=== PATIENT | female | born 1995 | race Caucasian/White ===

== ENCOUNTER 2020-04-13 21:54 | Emergency (ER) | payer OTHER ==
[~2020-04-13] VITALS: Ht 172.7 cm; Wt 52.2 kg
--- NOTE | 2020-04-13 22:00 | Emergency Room Report ---
History of Present Illness General Chief Complaint: To Be Triaged Source: Patient Present Illness HPI 25-year-old female With past medical history of migraine headaches and marijuana abuse presents to the emergency department with left-sided headache that began prior to arrival. Atraumatic. Similar to previous headache she has had in her life. Describes mild "visual fluttering" but no loss of vision, loss of hearing, facial weakness, slurred speech, focal weakness, chest pain, shortness of breath, photophobia, fever, chills, nausea, vomiting, diarrhea. Last menstrual period was 3 weeks ago. Patient has irregular periods 2/2 switching control and May 2019. The patient's symptoms were gradual onset, severity was moderate, duration since 1 day. Quality: Throbbing Past medical history: Migraines Past surgical history: Denies Smoking: Denies Alcohol use: Denies Drug use: ++Daily marijuana use Review of systems: CONST: No fevers or chills, No night sweats PULMONARY: No productive cough, No shortness of breath CARDIAC: No chest pain, No palpitations GI: No vomiting, No diarrhea , No melena_or_BRBPR : No dysuria, No hematuria, No discharge NEURO: No new_focal_weakness_or_numbness, No confusion, No vision changes 14 point Review of Systems is otherwise negative except per HPI Physical Exam: GENERAL: Awake_alert_ nontoxic, no acute distress Spo2 98% on RA -normal EYES: Extraocular muscles are intact. Conjunctivae clear. Lids without swelling. No nystagmus no cycloplegia. No hyphema no hypopion ENT: External nose and ear normal_in_appearance. Oropharynx clear. Head_atraumatic, Moist_oral_mucosa NECK: No JVD. No meningismus. No thyromegaly. Supple. Trachea midline RESP: Normal respiratory effort. Symmetric rise. No stridor. Clear_to_auscultation_No_rales_No_wheezes CARDIAC: Regular rate and regular rhytm. No_significant pedal edema. ABDOMEN: Soft. Nondistended. Nontender_No_rebound_or_guarding. MSK: Normal muscle tone, without rigidity. Extremities without asymmetric deformity or swelling. SKIN: Warm and dry. No visible cyanosis or pallor NEUROLOGIC: Alert, oriented x3. Motor_and_sensation_grossly_intact. No truncal ataxia. Gait_normal Psych: Normal mood and affect, normal judgment and insight - COORDINATION OF CARE Case was discussed with: Patient Any labs and imaging that were ordered were interpreted as part of the medical decision making: Medical Decision Making/Plan: Differential for the patients headache includes primary headache (migraine, tension, cluster), DOUBT subarachnoid hemorrhage, intracranial mass / tumor, meningitis, encephalitis, increased intracranial pressure, mastoiditis, acute sinusitis, dural venous thrombosis, temporal arteritis, acute angle closure glaucoma, among others. Headache not sudden and severe, not worst headache of life, no family hx of SAH, neurologically intact without any persistent vomiting. Not consistent with subarachnoid hemorrhage, cavernous sinus thrombosis, dural venous thrombosis, increased intracranial pressure, or significant tumor at this time. Patient without meningismus, mastoid / sinus tenderness, altered mental status or seizure. Doubt subdural abscess, meningitis, encephalitis, mastoiditis. No significant trauma mechanism, not anticoagulated. No evidence of subdural / epidural hematoma. [place] CT head criteria negative. No temporal tenderness, jaw claudication or vision loss. Eyes are reactive, with normal appearing anterior chambers. No evidence of temporal arteritis or acute angle closure glaucoma. Given the patients presentation, with new type of headache and vomiting, despite normal neurologic exam, advanced imaging of the head with CT was felt to indicated and was obtained after weighing the risks and benefits of radiation to rule out cause of increased intracranial pressure such as tumor or mass which was negative. UA neg. preg neg. CT head negative for tumor / mass / bleed. Remains neuro intact, all sx resolved after tylenol Pertinent results reviewed with the patient. I educated the patient on the current treatment plan including the risks, benefits, and alternatives. I also discussed the extent and limitations of the current evaluation. The patient expr essed understanding and agreement with plan. I recommended PMD follow-up within 1-2 days follow-up with a neurologist. Also advised that the patient return to the Emergency Department as soon as possible if they experience any new, persistent, or worsening symptoms. Allergies: Coded Allergies: No Known Allergies (Unverified , 04/13/20) Physical Exam Sp02 EP Interpretation: reviewed, normal Medical Decision Making Diagnostic Impression: Primary Impression: Headache Additional Impression: Marijuana use Disposition: HOME, SELF-CARE Condition: Stable Scripts Naproxen* (NAPROXEN*) 500 Mg Tablet.dr 500 MG ORAL TWICE A DAY for 10 Days, #20 TAB Prov: Cindi Barkley D.O. 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 You may need referral to neurologist for your chronic migraine headaches. Stop smoking marijuana. Follow-up with your doctor sooner if your condition requires a more timely clinical reevaluation. Return to the emergency department immediately if you feel that your condition is worsening or if you have any new or concerning symptoms. Review your discharge instructions and take any prescriptions given as instructed. [facility] PROVIDES FREE OR LOW-COST HEALTH SERVICES TO PEOPLE WHO CAN SHOW PROOF THAT THEY LIVE IN [facility]. TO FIND MORE CLINICS PARTNERED WITH [facility] TO PROVIDE SERVICE, PLEASE CALL . Cindi Barkley D.O. Apr 13, 2020 22:00
--- NOTE | 2020-04-13 22:15 | NUR ---
ED Nurse Note: Recieved pt walk in from home, here with c/o migraine headache she had earlier at 05/01, and with bilat eye twitching, s/s have resolved to no eye twitching and head pain at 09/29, pt states she wants to know why her eye was twitching, denies fevers, cough, or any other complaints or discomfort, no blurred vision or photophobia or nausea.
[2020-04-13] MEDS ORDERED: Acetaminophen 500mg (ES) tab ORAL ONE (22:30)
[2020-04-13] MEDS ORDERED: NAPROXEN500 M1 ORAL (22:43)
--- NOTE | 2020-04-13 23:14 | Diagnostic Imaging Report ---
EXAM: CT Head Without Intravenous Contrast CLINICAL HISTORY: HEAR TECHNIQUE: Axial computed tomography images of the head/brain without intravenous contrast. CTDI is 53.4 mGy and DLP is 936.3 mGy-cm. One or more of the following dose reduction techniques were used: automated exposure control, adjustment of the mA and/or kV according to patient size, use of iterative reconstruction technique. COMPARISON: No relevant prior studies available. FINDINGS: Brain: No hemorrhage. No edema. Ventricles: No ventriculomegaly. Bones/joints: No acute fracture. Soft tissues: Unremarkable. Sinuses: No acute sinusitis. Mastoid air cells: No mastoid effusion. IMPRESSION: No acute intracranial process.
[2020-04-14] LABS: APPEARANCE,URINE SLIGHTLY CLOUDY; BILIRUBIN, URINE NEGATIVE (NEGATIVE); GLUCOSE, URINE (UA) NEGATIVE (NEGATIVE); KETONES,URINE NEGATIVE (NEGATIVE); LEUKOCYTE ESTERASE ,URINE 1+ (NEGATIVE); NITRITE,URINE NEGATIVE (NEGATIVE); PH,URINE 8 (4.5-8.0); PROTEIN,URINE NEGATIVE (NEGATIVE); UROBILINOGEN,URINE NORMAL MG/DL (0.0-1.0)
[2020-04-14 00:06] LABS: COLOR,URINE YELLOW
[2020-04-14 00:15] VITALS: BP 121/77
[2020-04-14 00:30] VITALS: BP 121/77
--- NOTE | 2020-04-14 00:30 | NUR ---
ER DISCHARGE NOTE: Patient is cleared to be discharged per ERMD, pt is aox4, on room air, with stable vital signs. pt was given dc and prescription instructions, pt was able to verbalize understanding, pt id band removed without complications. pt is able to ambulate with steady gait. pt took all belongings.
== END 2020-04-14 00:30 | disposition home or self-care (01) ==
LOC: EMR 22:22
DX: R51 Headache (principal); F12.90 Cannabis use, unspecified, uncomplicated
CPT/HCPCS: 70450; 81003; 81025; 87086; 99284